=== PATIENT | male | born 1935 | race Caucasian/White ===

== ENCOUNTER 2016-11-25 11:18 | Inpatient (IN) | payer MEDICARE ==
--- NOTE | ~2016-11-25 | CN ---
Consultation Report [facility] [address] [facility] [place]. [address] NAME: CHEYANNE MA : 34 STATUS : ADM IN PAT#: [id number] AGE: 81 ADM/REG DATE : 11/25/16 MR#: [id number] REPORT SERV DATE: 11/28/16 DICTATED BY: MARKY MAGDALENO DATE: 11/28/16 REPORT STATUS : Draft TRANSCRIBED BY: MODPayal DATE: 11/28/16 CARDIOLOGY CONSULTATION DATE OF CONSULTATION: [facility] PHYSICIAN: Dr. Justin. INDICATION: An 81-year-old man with recurrent GI bleeding and anemia with chronic atrial fibrillation. HISTORY OF PRESENT ILLNESS: Mr. Ma is an 81-year-old man with a history of coronary artery disease, persistent atrial fibrillation, and stroke. He has had three hospitalizations over the past year for generalized weakness and shortness of breath and subsequent GI bleeding. The most recent episode occurred with presentation to the emergency room with weakness and shortness of breath. He was found to have a low hemoglobin and hematocrit and has had five units of packed red blood cells since he has been here. He is feeling a little bit better, but has not been up and walking around yet. He has no lightheadedness, dizziness. He has no chest pain or angina. He has no fevers or chills. No nausea. The review of systems is as per the history of present illness. Ten other systems are negative. PAST MEDICAL HISTORY: 1. Stroke. 2. Persistent atrial fibrillation. 3. Recurrent GI bleeding, three episodes in the past six months of unclear source despite upper, lower, and PillCam evaluation. 4. Coronary artery disease with history of bypass surgery. 5. Chronic kidney disease. FAMILY HISTORY: Positive for hypercoagulable state and coronary artery disease. SOCIAL HISTORY: The patient is . Former smoker, now quit. No alcohol. ALLERGIES: LISINOPRIL, OMEPRAZOLE. HOME MEDICATIONS: Allopurinol, Eliquis 2.5 p.o. b.i.d., Lipitor 40 daily, Symbicort, Rocaltrol, Coreg 25 mg p.o. b.i.d., vitamin D, B12, Vibra-Tabs, Zetia, Ferrex, Antivert, Protonix, potassium, Demadex 20 p.o. b.i.d. PHYSICAL EXAMINATION: VITAL SIGNS: Heart rate 97, blood pressure 136/78. GENERAL: Patient is a pleasant white male, in no apparent distress. Consultation Report [address] [place]. [address] NAME: CHEYANNE MA : 34 STATUS : ADM IN PAT#: [id number] AGE: 81 ADM/REG DATE : 11/25/16 MR#: [id number] REPORT SERV DATE: 11/28/16 DICTATED BY: MARKY MAGDALENO DATE: 11/28/16 REPORT STATUS : Draft TRANSCRIBED BY: MATHEW DATE: 11/28/16 HEENT: Conjunctivae are anicteric, no xanthelasma, lips without cyanosis. NECK: Supple, normal JVP, carotids +2 without bruit. LUNGS: Clear to auscultation bilaterally, no wheezes, rales or rhonchi. CARDIOVASCULAR: Irregularly irregular, 2/6 systolic murmur. ABDOMEN: Soft, nontender, nondistended, with normal bowel sounds. No hepatomegaly. EXTREMITIES: Trace edema. NEURO/PSYCH: Alert and oriented to person, place and time. No obvious neurologic deficits. Mood and affect normal. DATA: Electrocardiogram shows atrial fibrillation. Nonspecific ST-segment changes. LABORATORY DATA: Significant for white blood cell count of 12.7, hematocrit 26.4, creatinine of 2.19. IMPRESSION: 1. Recurrent GI bleeding of unclear source. 2. Chronic atrial fibrillation, CHADS-VASc score of 9. 3. History of transient ischemic attack. 4. Coronary artery disease, history of CABG, no angina. 5. Chronic kidney disease. 6. Chronic anemia. RECOMMENDATIONS: Mr. Ma has a difficult situation. He certainly has a stroke risk, but I believe at this time, his bleeding risk is higher than the stroke risk based on recurrent GI bleeds and this one being a five-unit bleed. There is no clear source of this bleeding based on GI evaluation, had a long discussion with the patient and his as well as Dr. Natanael Davison. At this time, my recommendation would be to back him down to a combination of aspirin and Plavix and stop Eliquis to see if that offers some stroke prophylaxis without causing recurrent bleeding. If he has bleeding on this combination, repeat PillCam may be helpful to try to find the source, if not, we would have to consider backing off further on his stroke prophylaxis therapy. I have discussed the whole scenario with the patient and his , and they agree. Thank you for this consultation. Please contact me if you have any further questions. I will notify Dr. Justin of his admission. WO/MATHEW Marky Magdaleno M.D., Ph.D, F.A.C.C. / [phone] Consultation Report [address] [address] NAME: CHEYANNE MA : 34 STATUS : ADM IN [facility]#: [id number] AGE: 81 ADM/REG DATE : 11/25/16 MR#: [id number] REPORT SERV DATE: 11/28/16 DICTATED BY: MARKY MAGDALENO DATE: 11/28/16 REPORT STATUS : Draft TRANSCRIBED BY: MATHEW DATE: 11/28/16 CC: Uma Davison M.D.
--- NOTE | ~2016-11-25 | EGD ---
EGD REPORT [facility] [address] 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 Estimated blood loss: None. Procedure: Pre-Anesthesia Assessment: - ASA Grade Assessment: IV - A patient with severe systemic disease that is a constant threat to life. After obtaining informed consent, the endoscope was passed under direct vision. Throughout the procedure, the patient's blood pressure, pulse, and oxygen saturations were monitored continuously. The PCF H190L [id number] was introduced through the mouth and advanced to the small bowel distal to the Ligament of Treitz. The small bowel enteroscopy was accomplished without difficulty. The patient tolerated the procedure well. Findings: The esophagus was normal. The stomach was normal. A single spot from prior tattoo with no bleeding was found in the fourth part of the duodenum. There was no evidence of significant pathology at 190 cm (from the incisors). Impression: - Normal esophagus. - Normal stomach. - A single spot (tattoo) with no bleeding in the duodenum. - The examined portion of the jejunum was normal. - There was no suggesiton of bleeding or AVMs on this examination Recommendation: - Return patient to hospital [facility] for ongoing care. - Resume Eliquis at prior dose in 5 days. - Return to GI clinic in 2 weeks for Hbg check and consideration of need for Pillcam while on Eliquis EGD REPORT [address] [place]. [address] NAME: YUNIEL MA : 34 STATUS : ADM IN [facility]#: [id number] AGE: 81 ADM/REG DATE : 11/25/16 MR#: [id number] REPORT SERV DATE: 11/28/16 DICTATED BY: MARKY CUNNINGHAM DATE: 11/28/16 REPORT STATUS : Draft TRANSCRIBED BY: [employer] DATE: 11/28/16 Procedure Code(s): --- Professional --- 52109, Small intestinal endoscopy, enteroscopy beyond second portion of duodenum, not including ileum; diagnostic, with or without collection of specimen(s) by brushing or washing (separate procedure) Diagnosis Code(s): --- Professional --- K31.9, Disease of stomach and duodenum, unspecified K92.2, Gastrointestinal hemorrhage, unspecified Q27.33, Arteriovenous malformation of digestive system vessel CPT copyright 2013 [employer] [place] [employer]. All rights reserved. The codes documented in this report are preliminary and upon invasive physician review may be revised to meet current compliance requirements. Marky Cunningham MD MARKY CUNNINGHAM MD 11/28/2016 8:47 AM This report has been signed electronically. Number of Addenda: 0 Note Initiated On: 11/28/2016 7:45 AM Scope Withdrawal Time 0 hours 0 minutes 0 seconds [address] [address]
--- NOTE | ~2016-11-25 | HP ---
History And Physical [place] [address] [place]. 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 He currently remains on Eliquis 2.5 b.i.d. for chronic atrial fibrillation and history of TIA/CVA. The patient returns today with worsening fatigue, generalized weakness, melanotic stool, and a hemoglobin of 5. He is currently receiving transfusion of packed red blood cells and has been started on a Protonix drip at 8 an hour. The patient will be admitted to the intermediate care unit for further evaluation and treatment. PAST MEDICAL HISTORY: Includes the above-mentioned GI bleeding issue, chronic atrial fibrillation, coronary disease with prior CABG, peripheral arterial disease with previous stents, aortic stenosis moderate in nature, COPD, chronic kidney disease stage 3-4, and prior TIA/CVA. SOCIAL HISTORY: No alcohol, tobacco, or drugs. Very supportive family. Currently full code. REVIEW OF SYSTEMS: As per HPI. He has had no adia chest pain. No shortness of breath. He has been lightheaded and weak, but has had no syncope. Remainder of 10-point review of systems negative except as stated above. FAMILY HISTORY: Positive for heart disease. PHYSICAL EXAMINATION: GENERAL: Elderly male patient, chronically ill appearing, no distress. VITAL SIGNS: Heart rate 83, blood pressure 94/44, respirations 22, temperature 98.3. HEENT: Pupils equal, round, and reactive to light. Extraocular muscles are intact. Oropharynx is clear. NECK: Without JVD or bruit. LUNGS: Clear anteriorly with normal chest expansion. HEART: Irregular. 2/6 murmur heard throughout the precordium. ABDOMEN: Obese, soft. Positive bowel sounds without organomegaly or mass. EXTREMITIES: No edema. Pulses are +2. SKIN: Without rash or ecchymotic area. JOINTS: Diffuse osteoarthritic change without synovitis or effusion. NEURO: Cranial nerves grossly intact. Motor exam is nonfocal. Sensation diminished at the knee and ankle. Gait was not assessed. GENITOURINARY: Deferred. RECTAL: Deferred. LABORATORY DATA: Available data: EKG shows chronic atrial fibrillation with controlled rate. Sodium 142, potassium 4.8, chloride 108, bicarb 27, BUN 88, creatinine 2.53. [place] History And Physical [address] [address] NAME: CHEYANNE MA : 34 STATUS : ADM IN PAT#: [id number] AGE: 81 ADM/REG DATE : 11/25/16 MR#: [id number] REPORT SERV DATE: 11/25/16 DICTATED BY: Uma DAVISON DATE: 11/25/16 REPORT STATUS : Draft TRANSCRIBED BY: MODL DATE: 11/25/16 count is 12.1, hemoglobin 5.0, hematocrit 15.1, platelets 194. INR is 2.0, but on Eliquis, this is uninterpretable. IMPRESSION: An 81-year-old male patient with multiple comorbidities and recurrent gastrointestinal bleeding while on Eliquis. PLAN: Admit to intermediate care. Attending Dr. Davison GI to consult. Electrolyte replacement guidelines. Routine vitals. O2 to keep sats greater than 90. Sips of clears. N.p.o. after midnight. Iron studies, H and H q.6 hours. Repeat electrolytes. Continue Protonix at 8 mg an hour. Reasonable nausea control. Keep 2 units of packed blood cells ahead at all time. If his next hemoglobin is less than 7, we will give 1 unit, if less than 6, we will transfuse 2. With regard to his home medications, we will hold Eliquis and hold his antihypertensives given his marginal blood pressure as well as his home diuretics. Further recommendations for treatment pending observation of his clinical course and review of pending data as well as input from Gastroenterology and likely Cardiology. At this point, with three admissions in 7 months for recurrent GI bleeding, it is quite possible that he will not be able to take aggressive anticoagulation for stroke prevention, even though with AFib and his CHADS-VASc score with mere anticoagulation, his recurrent GI bleeding likely will dip the scale away from aggressive anticoagulation to more of a strategy that would be aspirin-based. Again, further recommendations pending input from specialist. Family has been notified of the plans to currently hold anticoagulants and placed in intermediate care with close observation and evaluation by his other physicians. SURESH/MATHEW Uma Davison M.D. / [id number] CC: Morris Eisenberg M.D.
--- NOTE | ~2016-11-25 | CN ---
Consultation Report [facility] [address] [place]. [address] NAME: CHEYANNE MA : 34 STATUS : ADM IN [facility]#: [id number] AGE: 81 ADM/REG DATE : 11/25/16 MR#: [id number] REPORT SERV DATE: 11/26/16 DICTATED BY: PREET WATSON DATE: 11/26/16 REPORT STATUS : Draft TRANSCRIBED BY: MODL DATE: 11/26/16 GI CONSULTATION DATE OF CONSULTATION: REASON FOR CONSULTATION: GI consult regarding melena. HISTORY OF PRESENT ILLNESS: This is an 81-year-old man, who presented to the emergency room with worsening fatigue and weakness, as well as melena a couple of months. He has had no significant abdominal pain. No diarrhea or constipation. No GERD or dysphagia. Previous workup includes EGD and colonoscopy April 2016, showing an AVM in the fundus of the stomach, which was obliterated, as well as internal hemorrhoids, and a colon polyp removed. Enteroscopy in August [address] Barrios showed hiatal hernia, it was otherwise negative. Tattoo site at ligament of Treitz was negative for any recurrence of bleeding. MEDICAL HISTORY: Chronic atrial fibrillation, history of TIA/CVA, currently CAD, status post CABG; peripheral arterial disease, status post stents, aortic stenosis, moderate; COPD, and chronic kidney disease. ALLERGIES: LISINOPRIL AND OMEPRAZOLE. MEDICATIONS: Allopurinol, Eliquis, Lipitor, Symbicort, calcitriol, Coreg, vitamin D3, vitamin B12, doxycycline, Zetia, iron, Antivert, Protonix 40 mg twice daily, Klor-Con, and Demadex. SOCIAL HISTORY: He does not use alcohol or tobacco significantly. FAMILY HISTORY: Negative for GI malignancy. REVIEW OF SYSTEMS: A complete review of systems was obtained and negative except that noted in the history of present illness. PHYSICAL EXAMINATION: VITAL SIGNS: He is currently afebrile. Temperature is 98.0, Pulse 81, respirations 20, blood pressure 150/70. HEENT: Sclerae anicteric. NECK: Supple without lymphadenopathy. Pharynx is pink without exudate. LUNGS: Clear to auscultation bilaterally. HEART: Regular rate and rhythm. S1 and S2 heard without rubs or gallops. ABDOMEN: Normal bowel sounds. Belly is soft, nontender, and nondistended without hepatosplenomegaly. Consultation Report [place] [id number] [place]. [address] NAME: CHEYANNE MA : 34 STATUS : ADM IN PAT#: [id number] AGE: 81 ADM/REG DATE : 11/25/16 MR#: [id number] REPORT SERV DATE: 11/26/16 DICTATED BY: PREET WATSON DATE: 11/26/16 REPORT STATUS : Draft TRANSCRIBED BY: MODL DATE: 11/26/16 EXTREMITIES: No pedal edema or rash. NEUROLOGIC: Alert oriented without focal deficit. Muscle exam is nontender. DATA: White blood cell count 13.9, hematocrit initially 15.1, now 28.2 after 5 units of packed red blood cells. MCV initially 104.9, platelets 178. INR 2.0, BUN 81, creatinine 2.44. Liver tests normal. BNP 412, ferritin 70. Troponin negative. IMPRESSION: 1. Melena in the setting of previous arteriovenous malformations, small bowel and stomach. Question recurrence. 2. Atrial fibrillation, on anticoagulation including Eliquis. 3. Chronic kidney disease with GFR of 24. 4. History of cerebrovascular accident. RECOMMENDATIONS: 1. Continue Protonix. 2. Monitor hematocrit and transfuse as necessary. 3. Plan enteroscopy after Eliquis washout, which we will give approximately 72 hours. If there is active bleeding prior, we could consider enteroscopy sooner. CC/MATHEW Preet Watson M.D. / [id number] CC: DO Jose Luis Wilson M.D. Sumeet Bhushan, M.D.
--- NOTE | ~2016-11-25 | DS ---
Discharge Summary [facility] [address] [facility] [place]. [address] NAME: CHEYANNE MA : 34 STATUS : DIS IN PAT#: [id number] AGE: 81 ADM/REG DATE : 11/25/16 MR#: [id number] REPORT SERV DATE: 12/04/16 DICTATED BY: RAMBO FRANKS DATE: 12/03/16 REPORT STATUS : Draft TRANSCRIBED BY: MODL DATE: 12/03/16 ADMISSION DATE: 11/25/2016 DISCHARGE DATE: 12/03/2016 DISCHARGE DIAGNOSES: 1. Acute gastrointestinal bleed with acute blood loss anemia. The patient required a total of 7 units of packed red blood cells during this hospital stay. 2. Chronic atrial fibrillation, for which the patient has been on anticoagulation with Eliquis, this will be discontinued and the patient will be on aspirin and Plavix. 3. Chronic kidney disease, stage 3 to 4, which has been stable throughout this hospital stay. 4. Chronic obstructive pulmonary disease with chronic hypoxic respiratory failure on 3 L of oxygen at home. 5. History of peripheral artery disease with previous stents. 6. Aortic stenosis, moderate. 7. Prior transient ischemic attack and cerebrovascular accidents. CONSULTANTS: 1. GI, Dr. Gloria. 2. Cardiology, Dr. Estrella. PROCEDURES: The patient actually had two small bowel enterographies as well as a capsule endoscopy during this hospital stay. HOSPITAL COURSE: This is an 81-year-old gentleman who was admitted to the hospital with acute on chronic GI bleed in the setting of chronic anticoagulation with Eliquis. For details, please refer to excellent H and P dictated by Dr. Natanael Davison. In summary, the patient was initially admitted to the [facility] for more intensive care. The patient underwent an EGD which was negative, and in the meantime, the patient was seen by Cardiology, who recommended trying the patient on dual antiplatelet therapy instead of Eliquis as the patient has had recurrent GI bleeds in the past. By the time the patient came out of the ICU and I assumed care, the patient had already received 5 units of PRBCs and by then the patient's hemoglobin has become fairly stable. Although the patient did not have any further obvious bleeding, the patient's hemoglobin trickled down ever so slightly and never really trended up by the time I assumed care of this patient. The patient thus underwent capsule endoscopy. The capsule endoscopy showed a small amount of streaks of red blood without clear source of bleeding. The bleeding was in jejunum and the patient underwent a small bowel push enterography again without identification of source of bleeding. It was decided at this point in time further endoscopic intervention was futile and that the patient will probably need evaluation from [place] or [facility] for double bubble study should he bleed again in the future. As the patient's hemoglobin trickled down to 7 this morning, it was felt that the patient will benefit from 2 units of blood transfusions prior to discharge to home. Other than this GI bleed, the patient has been stable from the rest of his past medical standpoint despite the multiple chronic baseline illnesses that he has. The patient is now being discharged to home in stable condition with close outpatient followup instructions. Discharge Summary [address] [address] NAME: CHEYANNE MA : 34 STATUS : DIS IN PAT#: [id number] AGE: 81 ADM/REG DATE : 11/25/16 MR#: [id number] REPORT SERV DATE: 12/04/16 DICTATED BY: RAMBO FRANKS DATE: 12/03/16 REPORT STATUS : Draft TRANSCRIBED BY: MATHEW DATE: 12/03/16 DISPOSITION: Home. MEDICATIONS: Eliquis is discontinued and the patient will be on aspirin and Plavix dual anti platelet therapy starting 12/06/2016. FOLLOWUP: 1. Please follow up with GI in the next one to two weeks. 2. Please follow up with Cardiology in the next one to two weeks. 3. Please follow up with PCP in the next one to two weeks. A total of 40 minutes spent in coordinating this patient's discharge today. DICTATED BY: Rambo Franks MD [facility]/MATHEW Rambo Franks MD / [id number] CC: MD Jose Luis Garcia M.D.
--- NOTE | ~2016-11-25 | EGD ---
EGD REPORT [facility] [address] [address] NAME: YUNIEL MA : 34 STATUS : ADM IN PAT#: [id number] AGE: 81 ADM/REG DATE : 11/25/16 MR#: [id number] REPORT SERV DATE: 12/02/16 DICTATED BY: KATERYNA GIRARD DATE: 12/02/16 REPORT STATUS : Draft TRANSCRIBED BY: [employer] DATE: 12/02/16 Endoscopy Center Patient Name: Yuniel Ma Date of : 1935 Attending MD: KATERYNA GIRARD MD Procedure Date No Time: 12/02/2016 Procedure: Small bowel enteroscopy Indications: Melena, Obscure gastrointestinal bleeding, Small bowel capsule with bleeding in proximal 1/3 of sb Referring MD: ZEESHAN LATIF MD Medicines: See the Anesthesia note for documentation of the administered medications Complications: No immediate complications. Procedure: Pre-Anesthesia Assessment: - ASA Grade Assessment: IV - A patient with severe systemic disease that is a constant threat to life. After obtaining informed consent, the endoscope was passed under direct vision. Throughout the procedure, the patient's blood pressure, pulse, and oxygen saturations were monitored continuously. The PCF H190L [id number] was introduced through the mouth and advanced to the jejunum, to the 160 cm edy (from the incisors). The SIF Q180 [id number] was introduced through the and advanced to the jejunum, 190 cm . The small bowel enteroscopy was accomplished without difficulty. The small bowel enteroscopy was accomplished without difficulty. The patient tolerated the procedure well. Findings: A small hiatus hernia was present. Mild inflammation was found in the gastric body and in the gastric antrum. Normal stomach on retroflexion There was no evidence of significant pathology in the entire examined duodenum. There was no evidence of significant pathology in jejunum to 190; no blood, no avms seen Noted spot tattoo in distal duodenum Impression: - Hiatus hernia. - Gastritis. - Normal stomach on retroflexion - Normal examined duodenum. - The examined portion of the jejunum was normal. - Noted spot tattoo in distal duodenum EGD REPORT [address] [place]. [address] NAME: YUNIEL MA : 34 STATUS : ADM IN [facility]#: [id number] AGE: 81 ADM/REG DATE : 11/25/16 MR#: [id number] REPORT SERV DATE: 12/02/16 DICTATED BY: KATERYNA GIRARD DATE: 12/02/16 REPORT STATUS : Draft TRANSCRIBED BY: [employer] DATE: 12/02/16 Recommendation: - Return patient to hospital plum[facility] for ongoing care. Procedure Code(s): --- Professional --- 51928, Small intestinal endoscopy, enteroscopy beyond second portion of duodenum, not including ileum; diagnostic, with or without collection of specimen(s) by brushing or washing (separate procedure) Diagnosis Code(s): --- Professional --- K44.9, Diaphragmatic hernia without obstruction or gangrene K29.70, Gastritis, unspecified, without bleeding K92.1, Melena K92.2, Gastrointestinal hemorrhage, unspecified CPT copyright 2013 [place] [employer]. All rights reserved. The codes documented in this report are preliminary and upon medical record coder review may be revised to meet current compliance requirements. Kateryna Girard MD KATERYNA GIRARD MD 12/02/2016 8:35 AM This report has been signed electronically. Number of Addenda: 0 Note Initiated On: 12/02/2016 7:03 AM Scope Withdrawal Time 0 hours 0 minutes 0 seconds [address] [address]
[~2016-11-25 11:18] MED LIST: ACET500CAP PO; AMLODIPINE PO; ASAB PO; ATORVASTATIN PO; BLU EMU TOP; C5 PO; COREG25 PO; COUMADIN4 MG PO; DEMA20 PO; ELIQUIS 2.5 MG2.5 MG PO; FERREX 150150 MG PO; FLORASTOR250 MG PO; HCTZ25B PO; HYDROCHLOROT25 MG PO; KLOR-CON M2020 MEQ PO; L40 PO; LIPITOR40 PO; LOP50 PO; MCZ125 PO; MONODOX100 MG PO; NORCO1 TA2 PO; NORV10 PO; OXYGEN; P10 PO; PLAVIX PO; PRILO PO; PROTONIX PO; PROVHFA INH; REQUIP5 PO; ROCALTROL 0.0.25 MCG PO; SB325 PO; SPIRIVA RESPIMAT INH; SYMBICORT 160/41 INH INH; VITAMIN B-12 OTC PO; VITAMIN D1000 UNI1 PO; VITAMIN D31000 UNIT PO; Z300 PO; ZANTAC 150 PO; ZANTAC150 MG PO; ZESTORETIC1 TA1 PO; ZETIA PO; ZITHROMAX500 MG PO; [UNRECOGNIZED DRUG - OTHER] PO
[2016-11-25] MEDS ORDERED: Z300 PO (11:45)
[2016-11-25] MEDS ORDERED: COREG25 PO (11:46)
[2016-11-25] MEDS ORDERED: VIBRATAB100 MG PO (11:46)
[2016-11-25] MEDS ORDERED: LIPITOR40 PO (11:46)
[2016-11-25] MEDS ORDERED: ZETIA PO (11:47)
[2016-11-25] MEDS ORDERED: VITAMIN D31000 UNIT PO (11:47)
[2016-11-25] MEDS ORDERED: FERREX 150150 MG PO (11:47)
[2016-11-25] MEDS ORDERED: ELIQUIS 2.5 MG2.5 MG PO (11:47)
[2016-11-25] MEDS ORDERED: MCZ125 PO (11:47)
[2016-11-25] MEDS ORDERED: PROTONIX PO (11:48)
[2016-11-25] MEDS ORDERED: KLOR-CON M2020 MEQ PO (11:48)
[2016-11-25] MEDS ORDERED: CYANO1000T PO (11:48)
[2016-11-25] MEDS ORDERED: DEMA20 PO (11:48)
[2016-11-25] MEDS ORDERED: SYMBICORT 160/41 INH INH (11:48)
[2016-11-25] MEDS ORDERED: ROCALTROL 0.0.25 MCG PO (11:49)
[2016-11-25 12:01] LABS: BASOPHILS 0.6 %; BASOPHILS ABSOLUTE 0.07 10/3/uL (0.0-0.16); EOSINOPHILS 2.1 %; EOSINOPHILS ABSOLUTE 0.25 10/3/uL (0.0-0.53); IMMATURE GRANULOCYTES 5.2 %; LYMPHOCYTES 17.2 %; LYMPHOCYTES ABSOLUTE 2.09 10/3/uL (0.67-4.30); MEAN CORPUS HGB CONC 33.1 g/dL (32.0-36.0); MEAN CORPUSCULAR HEMOGLOB 34.7 pg (26.0-34.0); MEAN PLATELET VOLUME 9.2 fL (9.2-13.0); MONOCYTES 15.4 %; MONOCYTES ABSOLUTE 1.87 10/3/uL (0.21-1.20); NEUTROPHILS 59.5 %; NEUTROPHILS ABSOLUTE 7.23 10/3/uL (2.02-8.40); NUCLEATED RED BLOOD CELLS 1.1 /100WBC (0-0); PLATELET COUNT 194 10/3/uL (150-400)
[2016-11-25 12:04] LABS: ER CBC TAT 0 Hrs 11 Mins; PARTIAL THROMBO TIME 32.9 SEC (22.5-37.2); PROTIME (NOT ORD) 22.6 SEC (12.0-14.5); RED CELL COUNT 1.44 10/6/uL (4.7-6.1); WHITE BLOOD CELLS 12.1 10/3/uL (4.5-10.5)
[2016-11-25 12:05] LABS: HEMATOCRIT 15.1 % (40.0-51.0); MEAN CORPUSCULAR VOLUME 104.9 fL (80-100)
[2016-11-25 12:06] LABS: IMMATURE GRANULOCYTES ABSOLUTE 0.63 10/3/uL (0.0-0.11); MANUAL DIFF NO %
[2016-11-25 12:13] LABS: ALKALINE PHOSPHATASE 66 U/L (45-117); CALCIUM, SERUM 8.6 MG/DL (8.5-10.4); CHEST PAIN PROFILE TAT 0 Hrs 20 Mins; CHLORIDE, SERUM 108 MMOL/L (96-112); CO2 (CARBON DIOXIDE) 27 MMOL/L (24-34); CREATININE 2.53 MG/DL (0.70-1.30); DIRECT BILIRUBIN 0.1 MG/DL (0.0-0.4); GFR AFRICAN AMERICAN 26 ML/MIN (>=60); GFR NON AFRICAN AMERICAN 23 ML/MIN (>=60); INDIRECT BILIRUBIN(NOT ORDER) 0.3 MG/DL (0.1-0.9); POTASSIUM, SERUM 4.8 MMOL/L (3.5-5.3); SGOT(AST) 12 U/L (5-40); SGPT(ALT) 11 U/L (5-65); SODIUM, SERUM 142 MMOL/L (135-148); TOTAL PROTEIN 6.5 G/DL (6.0-8.5); TROPONIN I 0.02 NG/ML (<0.05)
[2016-11-25 12:14] LABS: ALBUMIN 3.2 G/DL (3.5-5.0); BUN (BLOOD UREA NITROGEN) 88 MG/DL (6-23); GLUCOSE, SERUM 102 MG/DL (60-99); TOTAL BILIRUBIN 0.4 MG/DL (0-1.2)
[2016-11-25 12:29] LABS: ANISOCYTOSIS 1+ (5-10/OIF) (0-5/OIF); BAND NEUTROPHILS 11 %; EOSINOPHILS 1 %; EOSINOPHILS ABSOLUTE (CALC) 0.12 10/3/uL (0.0-0.53); ER DIFF TAT 0 Hrs 36 Mins; IMMATURE GRANS ABSOLUTE (CALC) 0.24 10/3/uL (0.0-0.11); LYMPHOCYTES 15 %; LYMPHOCYTES ABSOLUTE (CALC) 1.82 10/3/uL (0.67-4.30); MACROCYTES 1+ (5-10/OIF) (0-5/OIF); METAMYELOCYTES 1 %; MONOCYTES 16 %; MONOCYTES ABSOLUTE (CALC) 1.94 10/3/uL (0.21-1.20); MYELOCYTES 1 %; NEUTROPHILS ABSOLUTE (CALC) 7.99 10/3/uL (2.02-8.40); PLATELET ESTIMATE ADQ (ADEQUATE); SEGMENTED NEUTROPHIL (0) 55 %; TOTAL NUCLEATED CELLS 100
[2016-11-25 12:31] LABS: BASOPHILIC STIPPLING 1+ (2-5/OIF) (0-1/OIF); POLYCHROMASIA 1+ (2-5/OIF) (0-1/OIF); ROULEAUX FORMATION 1+
[2016-11-25 17:17] LABS: FERRITIN 70 NG/ML (26-388); IRON BINDING CAPACITY 344 MCG/DL (250-450); IRON, SERUM 74 MCG/DL (35-150)
[2016-11-26 01:22] LABS: HEMATOCRIT 23.6 % (40.0-51.0)
[2016-11-26 01:29] LABS: MEAN CORPUS HGB CONC 33.9 g/dL (32.0-36.0); MEAN CORPUSCULAR HEMOGLOB 32.7 pg (26.0-34.0); MEAN PLATELET VOLUME 9.7 fL (9.2-13.0); PLATELET COUNT 178 10/3/uL (150-400); RBC DISTRIBUTION WIDTH 19.5 % (12.0-16.0); WHITE BLOOD CELLS 13.9 10/3/uL (4.5-10.5)
[2016-11-26 01:30] LABS: HEMATOCRIT 23.6 % (40.0-51.0); MANUAL DIFF YES %; MEAN CORPUSCULAR VOLUME 96.3 fL (80-100); RED CELL COUNT 2.45 10/6/uL (4.7-6.1)
[2016-11-26 01:39] LABS: BUN (BLOOD UREA NITROGEN) 81 MG/DL (6-23); CALCIUM, SERUM 8.5 MG/DL (8.5-10.4); CHLORIDE, SERUM 112 MMOL/L (96-112); CO2 (CARBON DIOXIDE) 27 MMOL/L (24-34); CREATININE 2.44 MG/DL (0.70-1.30); GFR AFRICAN AMERICAN 28 ML/MIN (>=60); GFR NON AFRICAN AMERICAN 24 ML/MIN (>=60); GLUCOSE, SERUM 90 MG/DL (60-99); POTASSIUM, SERUM 4.3 MMOL/L (3.5-5.3); SODIUM, SERUM 145 MMOL/L (135-148)
[2016-11-26 01:54] LABS: BAND NEUTROPHILS 12 %; EOSINOPHILS 2 %; EOSINOPHILS ABSOLUTE (CALC) 0.28 10/3/uL (0.0-0.53); IMMATURE GRANS ABSOLUTE (CALC) 1.25 10/3/uL (0.0-0.11); LYMPHOCYTES 19 %; LYMPHOCYTES ABSOLUTE (CALC) 2.64 10/3/uL (0.67-4.30); MACROCYTES 1+ (5-10/OIF) (0-5/OIF); METAMYELOCYTES 6 %; MICROCYTES 1+ (5-10/OIF) (0-5/OIF); MYELOCYTES 3 %; NEUTROPHILS ABSOLUTE (CALC) 9.73 10/3/uL (2.02-8.40); PLATELET ESTIMATE ADQ (ADEQUATE); SEGMENTED NEUTROPHIL (0) 58 %; TOTAL NUCLEATED CELLS 100
[2016-11-26 11:04] LABS: HEMATOCRIT 28.2 % (40.0-51.0); HEMOGLOBIN 9.5 g/dL (13.6-17.8)
[2016-11-26 20:23] LABS: HEMATOCRIT 27.7 % (40.0-51.0); HEMOGLOBIN 9.4 g/dL (13.6-17.8)
[2016-11-27 05:55] LABS: HEMATOCRIT 27.8 % (40.0-51.0); HEMOGLOBIN 9.6 g/dL (13.6-17.8)
[2016-11-27 11:41] LABS: HEMATOCRIT 27.9 % (40.0-51.0); HEMOGLOBIN 9.5 g/dL (13.6-17.8)
[2016-11-27 20:53] LABS: HEMATOCRIT 27.4 % (40.0-51.0); HEMOGLOBIN 9.2 g/dL (13.6-17.8)
[2016-11-28 04:58] LABS: BASOPHILS 0.3 %; BASOPHILS ABSOLUTE 0.04 10/3/uL (0.0-0.16); EOSINOPHILS 2.7 %; EOSINOPHILS ABSOLUTE 0.34 10/3/uL (0.0-0.53); HEMATOCRIT 26.4 % (40.0-51.0); HEMOGLOBIN 8.8 g/dL (13.6-17.8); IMMATURE GRANULOCYTES 3.4 %; IMMATURE GRANULOCYTES ABSOLUTE 0.43 10/3/uL (0.0-0.11); LYMPHOCYTES 16.2 %; LYMPHOCYTES ABSOLUTE 2.06 10/3/uL (0.67-4.30); MEAN CORPUS HGB CONC 33.3 g/dL (32.0-36.0); MEAN CORPUSCULAR HEMOGLOB 31.7 pg (26.0-34.0); MEAN PLATELET VOLUME 9.5 fL (9.2-13.0); MONOCYTES 16.5 %; MONOCYTES ABSOLUTE 2.09 10/3/uL (0.21-1.20); NEUTROPHILS 60.9 %; NEUTROPHILS ABSOLUTE 7.74 10/3/uL (2.02-8.40); PLATELET COUNT 169 10/3/uL (150-400); RBC DISTRIBUTION WIDTH 20.6 % (12.0-16.0); RED CELL COUNT 2.78 10/6/uL (4.7-6.1); WHITE BLOOD CELLS 12.7 10/3/uL (4.5-10.5)
[2016-11-28 04:59] LABS: MANUAL DIFF NO %
[2016-11-28 05:03] LABS: INTERNATIONAL NORMAL RATI 1.5 UNITS (-)
[2016-11-28 05:04] LABS: PROTIME (NOT ORD) 17.6 SEC (12.0-14.5)
[2016-11-28 05:09] LABS: BUN (BLOOD UREA NITROGEN) 71 MG/DL (6-23); CALCIUM, SERUM 9.2 MG/DL (8.5-10.4); CHLORIDE, SERUM 110 MMOL/L (96-112); CO2 (CARBON DIOXIDE) 28 MMOL/L (24-34); CREATININE 2.19 MG/DL (0.70-1.30); GFR AFRICAN AMERICAN 31 ML/MIN (>=60); GFR NON AFRICAN AMERICAN 27 ML/MIN (>=60); GLUCOSE, SERUM 111 MG/DL (60-99); POTASSIUM, SERUM 3.9 MMOL/L (3.5-5.3); SODIUM, SERUM 140 MMOL/L (135-148)
[2016-11-28 15:32] LABS: HEMATOCRIT 26.4 % (40.0-51.0); HEMOGLOBIN 8.7 g/dL (13.6-17.8)
[2016-11-29 04:28] LABS: HEMOGLOBIN 8.3 g/dL (13.6-17.8)
[2016-11-29 04:50] LABS: BUN (BLOOD UREA NITROGEN) 71 MG/DL (6-23); CALCIUM, SERUM 8.6 MG/DL (8.5-10.4); CHLORIDE, SERUM 108 MMOL/L (96-112); CO2 (CARBON DIOXIDE) 26 MMOL/L (24-34); CREATININE 2.28 MG/DL (0.70-1.30); GFR AFRICAN AMERICAN 30 ML/MIN (>=60); GFR NON AFRICAN AMERICAN 26 ML/MIN (>=60); GLUCOSE, SERUM 101 MG/DL (60-99); POTASSIUM, SERUM 3.8 MMOL/L (3.5-5.3); SODIUM, SERUM 140 MMOL/L (135-148)
[2016-11-29] MEDS ORDERED: PLAVIX PO (11:20)
[2016-11-29] MEDS ORDERED: ASAB PO (11:20)
[2016-11-29 13:42] LABS: HEMATOCRIT 24.7 % (40.0-51.0); HEMOGLOBIN 8.2 g/dL (13.6-17.8)
[2016-11-29 15:53] LABS: HEMATOCRIT 24.9 % (40.0-51.0); HEMOGLOBIN 8.2 g/dL (13.6-17.8)
[2016-11-30 04:51] LABS: BASOPHILS 0.2 %; BASOPHILS ABSOLUTE 0.02 10/3/uL (0.0-0.16); EOSINOPHILS 1.8 %; EOSINOPHILS ABSOLUTE 0.19 10/3/uL (0.0-0.53); HEMATOCRIT 22.6 % (40.0-51.0); HEMOGLOBIN 7.5 g/dL (13.6-17.8); IMMATURE GRANULOCYTES 1.4 %; IMMATURE GRANULOCYTES ABSOLUTE 0.15 10/3/uL (0.0-0.11); LYMPHOCYTES 18.3 %; LYMPHOCYTES ABSOLUTE 1.92 10/3/uL (0.67-4.30); MEAN CORPUS HGB CONC 33.2 g/dL (32.0-36.0); MEAN CORPUSCULAR HEMOGLOB 31.6 pg (26.0-34.0); MEAN CORPUSCULAR VOLUME 95.4 fL (80-100); MEAN PLATELET VOLUME 9.9 fL (9.2-13.0); MONOCYTES 19.2 %; MONOCYTES ABSOLUTE 2.02 10/3/uL (0.21-1.20); NEUTROPHILS 59.1 %; NEUTROPHILS ABSOLUTE 6.22 10/3/uL (2.02-8.40); PLATELET COUNT 155 10/3/uL (150-400); RBC DISTRIBUTION WIDTH 19.5 % (12.0-16.0); RED CELL COUNT 2.37 10/6/uL (4.7-6.1); WHITE BLOOD CELLS 10.5 10/3/uL (4.5-10.5)
[2016-11-30 04:56] LABS: MANUAL DIFF NO %
[2016-11-30 05:00] LABS: CALCIUM, SERUM 8.4 MG/DL (8.5-10.4); CHLORIDE, SERUM 106 MMOL/L (96-112); CO2 (CARBON DIOXIDE) 27 MMOL/L (24-34); CREATININE 2.32 MG/DL (0.70-1.30); GFR AFRICAN AMERICAN 29 ML/MIN (>=60); GFR NON AFRICAN AMERICAN 25 ML/MIN (>=60); GLUCOSE, SERUM 91 MG/DL (60-99); POTASSIUM, SERUM 3.4 MMOL/L (3.5-5.3); SODIUM, SERUM 143 MMOL/L (135-148)
[2016-11-30 05:03] LABS: BUN (BLOOD UREA NITROGEN) 65 MG/DL (6-23)
[2016-11-30 11:52] LABS: HEMATOCRIT 22.9 % (40.0-51.0); HEMOGLOBIN 7.5 g/dL (13.6-17.8)
[2016-11-30 15:50] LABS: HEMATOCRIT 22.2 % (40.0-51.0); HEMOGLOBIN 7.4 g/dL (13.6-17.8)
[2016-12-01 04:42] LABS: BASOPHILS 0.1 %; BASOPHILS ABSOLUTE 0.02 10/3/uL (0.0-0.16); EOSINOPHILS 0.4 %; EOSINOPHILS ABSOLUTE 0.07 10/3/uL (0.0-0.53); HEMATOCRIT 22.7 % (40.0-51.0); HEMOGLOBIN 7.5 g/dL (13.6-17.8); IMMATURE GRANULOCYTES 0.9 %; IMMATURE GRANULOCYTES ABSOLUTE 0.15 10/3/uL (0.0-0.11); LYMPHOCYTES ABSOLUTE 1.64 10/3/uL (0.67-4.30); MEAN CORPUSCULAR HEMOGLOB 31.5 pg (26.0-34.0); MEAN CORPUSCULAR VOLUME 95.4 fL (80-100); MEAN PLATELET VOLUME 10.2 fL (9.2-13.0); MONOCYTES 18.1 %; MONOCYTES ABSOLUTE 2.96 10/3/uL (0.21-1.20); NEUTROPHILS 70.5 %; NEUTROPHILS ABSOLUTE 11.53 10/3/uL (2.02-8.40); PLATELET COUNT 154 10/3/uL (150-400); RBC DISTRIBUTION WIDTH 19.5 % (12.0-16.0); RED CELL COUNT 2.38 10/6/uL (4.7-6.1)
[2016-12-01 04:45] LABS: MANUAL DIFF NO %; WHITE BLOOD CELLS 16.4 10/3/uL (4.5-10.5)
[2016-12-01 04:49] LABS: BUN (BLOOD UREA NITROGEN) 52 MG/DL (6-23); CALCIUM, SERUM 8.3 MG/DL (8.5-10.4); CHLORIDE, SERUM 106 MMOL/L (96-112); CO2 (CARBON DIOXIDE) 27 MMOL/L (24-34); CREATININE 2.08 MG/DL (0.70-1.30); GFR AFRICAN AMERICAN 33 ML/MIN (>=60); GFR NON AFRICAN AMERICAN 29 ML/MIN (>=60); GLUCOSE, SERUM 100 MG/DL (60-99); SODIUM, SERUM 143 MMOL/L (135-148)
[2016-12-01 15:39] LABS: HEMATOCRIT 22.7 % (40.0-51.0); HEMOGLOBIN 7.5 g/dL (13.6-17.8)
[2016-12-02 04:05] LABS: BASOPHILS 0.3 %; BASOPHILS ABSOLUTE 0.03 10/3/uL (0.0-0.16); EOSINOPHILS 2.2 %; EOSINOPHILS ABSOLUTE 0.24 10/3/uL (0.0-0.53); HEMATOCRIT 22.5 % (40.0-51.0); HEMOGLOBIN 7.3 g/dL (13.6-17.8); IMMATURE GRANULOCYTES 1.2 %; IMMATURE GRANULOCYTES ABSOLUTE 0.13 10/3/uL (0.0-0.11); LYMPHOCYTES 16.8 %; LYMPHOCYTES ABSOLUTE 1.85 10/3/uL (0.67-4.30); MEAN CORPUS HGB CONC 32.4 g/dL (32.0-36.0); MEAN CORPUSCULAR HEMOGLOB 31.3 pg (26.0-34.0); MEAN CORPUSCULAR VOLUME 96.6 fL (80-100); MEAN PLATELET VOLUME 10.1 fL (9.2-13.0); MONOCYTES ABSOLUTE 1.99 10/3/uL (0.21-1.20); NEUTROPHILS 61.5 %; PLATELET COUNT 156 10/3/uL (150-400); RBC DISTRIBUTION WIDTH 19.3 % (12.0-16.0); RED CELL COUNT 2.33 10/6/uL (4.7-6.1)
[2016-12-02 04:14] LABS: MANUAL DIFF NO %
[2016-12-02 04:16] LABS: BUN (BLOOD UREA NITROGEN) 43 MG/DL (6-23); CALCIUM, SERUM 8.6 MG/DL (8.5-10.4); CHLORIDE, SERUM 107 MMOL/L (96-112); CO2 (CARBON DIOXIDE) 30 MMOL/L (24-34); CREATININE 2.02 MG/DL (0.70-1.30); GFR AFRICAN AMERICAN 35 ML/MIN (>=60); GFR NON AFRICAN AMERICAN 30 ML/MIN (>=60); GLUCOSE, SERUM 95 MG/DL (60-99); SODIUM, SERUM 141 MMOL/L (135-148)
[2016-12-02 14:40] LABS: HEMATOCRIT 22.6 % (40.0-51.0); HEMOGLOBIN 7.3 g/dL (13.6-17.8)
[2016-12-03 05:36] LABS: BASOPHILS 0.3 %; BASOPHILS ABSOLUTE 0.03 10/3/uL (0.0-0.16); EOSINOPHILS 2.6 %; EOSINOPHILS ABSOLUTE 0.27 10/3/uL (0.0-0.53); HEMATOCRIT 21.1 % (40.0-51.0); IMMATURE GRANULOCYTES 1.4 %; IMMATURE GRANULOCYTES ABSOLUTE 0.14 10/3/uL (0.0-0.11); LYMPHOCYTES 19.1 %; LYMPHOCYTES ABSOLUTE 1.98 10/3/uL (0.67-4.30); MEAN CORPUS HGB CONC 33.2 g/dL (32.0-36.0); MEAN CORPUSCULAR VOLUME 96.3 fL (80-100); MEAN PLATELET VOLUME 9.9 fL (9.2-13.0); MONOCYTES 16.4 %; NEUTROPHILS 60.2 %; NEUTROPHILS ABSOLUTE 6.23 10/3/uL (2.02-8.40); PLATELET COUNT 162 10/3/uL (150-400); RBC DISTRIBUTION WIDTH 19.1 % (12.0-16.0); RED CELL COUNT 2.19 10/6/uL (4.7-6.1); WHITE BLOOD CELLS 10.4 10/3/uL (4.5-10.5)
[2016-12-03 05:46] LABS: MANUAL DIFF NO %
[2016-12-03 16:37] LABS: HEMOGLOBIN 9.1 g/dL (13.6-17.8)
[2016-12-03 16:38] LABS: HEMATOCRIT 27.3 % (40.0-51.0)
== END 2016-12-03 17:25 | disposition home or self-care (01) | DRG 378 ==
LOC: ER 11:18 → IMCU 12:51 → 6NO 11-28 13:06
PROVIDERS: Emergency Medicine; Internal Medicine; Internal Medicine Gastroenterology; Nurse Practitioner Family
PROC: 30233N1 Transfusion of Nonautologous Red Blood Cells into Peripheral Vein, Percutaneous Approach (ICD-10-PCS; 2016-11-25)
PROC: 30233K1 Transfusion of Nonautologous Frozen Plasma into Peripheral Vein, Percutaneous Approach (ICD-10-PCS; 2016-11-26)
PROC: 0DJ08ZZ Inspection of Upper Intestinal Tract, Via Natural or Artificial Opening Endoscopic (ICD-10-PCS; 2016-11-28)
PROC: 0DJD8ZZ Inspection of Lower Intestinal Tract, Via Natural or Artificial Opening Endoscopic (ICD-10-PCS; principal; 2016-11-28 08:00)
PROC: 0DJ07ZZ Inspection of Upper Intestinal Tract, Via Natural or Artificial Opening (ICD-10-PCS; 2016-11-30)
PROC: 0DJD8ZZ Inspection of Lower Intestinal Tract, Via Natural or Artificial Opening Endoscopic (ICD-10-PCS; 2016-12-02)
PROC: 0DJ08ZZ Inspection of Upper Intestinal Tract, Via Natural or Artificial Opening Endoscopic (ICD-10-PCS; 2016-12-02)
DX: K92.2 Gastrointestinal hemorrhage, unspecified (principal); D62 Acute posthemorrhagic anemia; J96.11 Chronic respiratory failure with hypoxia; N18.4 Chronic kidney disease, stage 4 (severe); I48.1 Persistent atrial fibrillation; N17.9 Acute kidney failure, unspecified; I48.2 Chronic atrial fibrillation; Z99.81 Dependence on supplemental oxygen; K44.9 Diaphragmatic hernia without obstruction or gangrene; K29.70 Gastritis, unspecified, without bleeding; J44.9 Chronic obstructive pulmonary disease, unspecified; I35.0 Nonrheumatic aortic (valve) stenosis; E66.9 Obesity, unspecified; Z86.73 Personal history of transient ischemic attack (TIA), and cerebral infarction without residual deficits; Z79.01 Long term (current) use of anticoagulants; Z79.82 Long term (current) use of aspirin; Z68.32 Body mass index [BMI] 32.0-32.9, adult
CPT/HCPCS: 36415; 80048; 80076; 82728; 83540; 83550; 83735; 83880; 84484; 85014; 85018; 85025; 85610; 85730; 86850; 86900; 86901; 86920; 87641; 93005; 94640; 97161-GP; 99291; A9270-GY; C9113; G8978-CH-GP; G8979-CH-GP; G8980-CH-GP; J1610; J2370; J2405; J3430; P9016; P9059